=== PATIENT | male | born 1955 | race Caucasian/White ===

== ENCOUNTER 2024-05-03 01:28 | Day surgery (SDC) | payer MEDICARE, SELFPAY ==
[2024-04-24 15:56] VITALS: BMI 24.0
--- NOTE | 2024-04-24 16:12 | PC.NURSE ---
Report to the Outpatient Waiting Room, entrance under the green pavilion located off [facility], at time __8:30AM on date ___05/03/24____. Planned Procedure Time: __10:30AM . Time changes happen often and if your time is changed the preop area will call you the afternoon before. - You and your visitor will be asked to self-screen and do not enter if you have any COVID symptoms. - A mask is optional within the hospital at this time. Patients may have clear liquids (water, carbonated beverages, clear teas, apple juice) until 3 hours prior to surgery with a maximum of 20 ounces. - No food from midnight until time of surgery. Take the following medications with a SIP of water the morning of surgery: __DOXYCYCLINE DO NOT STOP ANY OF YOUR OTHER PRESCRIPTION MEDICATIONS PRIOR TO SURGERY ?EXCEPT THE FOLLOWING Medications to discontinue per physician __HOLD ALL VITAMINS/SUPPLEMENTS 7 DAYS PRE-OP PER DR WRIGHT, PER PATIENT Date to take last dose 04/25/24 Please no make-up, nail martiniquais, hairspray, perfume, deodorant, or body powder the day of surgery. No jewelry (including any body piercings) or valuables the day of surgery, leave them at home. Please take a shower or bath the night before, or the morning of, surgery with an antibacterial soap. Wear comfortable, loose fitting clothing. - Jewelry must be removed prior to entering the operating room. Rings and piercings that are not removed may be cut off. - The hospital will not accept responsibility for valuables. - Please leave all valuables, including medications, at home the day of surgery. If you are going home after surgery, a licensed winch driver must drive you home. - NO public transportation without another adult if you receive anesthesia. - We recommend that an adult stay with you for 24 hours following discharge. - We also recommend that you do not drive, make important decision, drink alcoholic beverages, or take any drugs that were not prescribed by your health care provider for at least 24 hours after your discharge time. Follow any additional instructions given to you from your surgeon. If you or anyone in your household have experienced Covid symptoms in the past week, please notify your surgeon or the nurse liaison at the phone number below for possible testing. Telephone instructions given to ___PATIENT and asked if any additional questions and then verbalized understanding. Patient advised to call surgeon office or pre surgery nurse liaison [phone] if any additional questions.
[2024-05-03] VITALS (8 sets, daily range): BP systolic 115–128; BP diastolic 68–87; PULSE 60–82; RESP 11–18; TEMP 36.1–36.3; O2SAT 96–100
[2024-05-03] MEDS: ACETAMINOPHEN 500 MG TABLET 1000 MG PO (09:00)
[2024-05-03] MEDS: LACTATED RINGERS 1,000 ML 30 ML IV CONT (09:00)
--- NOTE | 2024-05-03 10:59 | P.PNAN_ITS ---
Anes - Initial Pre Proc Eval Procedure: Operation Date: 05/03/24 10:30 Proposed Procedures p Right Hydrocelectomy, - Chepe Walker MD s Right Spermatocelectomy - Chepe Walker MD Date/Time: 05/03/24 10:59 Surgeon: Chepe Walker MD Pre Op Diagnosis: spermatocele, hydrocele Patient Data Age: 69 Gender: M Height: 1.88 m Weight: 85.2 kg Last Vital Signs Temp 96.9 F L 05/03/24 08:48 Pulse 69 05/03/24 08:48 Resp 18 05/03/24 08:48 BP 115/70 05/03/24 08:48 Pulse Ox 96 05/03/24 08:48 O2 Del Method Room Air 05/03/24 08:48 Allergies Allergy/AdvReac Type Severity Reaction Status Date / Time penicillin G Allergy Rash Verified 05/03/24 09:11 Home Medications Medication Instructions Recorded Confirmed Type cholecalciferol (vitamin D3) 50 50 mcg PO DAILY 04/24/24 05/03/24 History mcg (2,000 unit) capsule doxycycline hyclate 50 mg capsule 50 mg PO DAILY 04/24/24 05/03/24 History hydroxyzine HCl 10 mg tablet 10 mg PO HS 04/24/24 05/03/24 History metronidazole 1 % topical gel 1 applic topical HS 04/24/24 05/03/24 History phenyleph-shark liver 1 applic topical HS 04/24/24 05/03/24 History [id number] rectal cream Patient hx anesthesia problems: none Family hx anesthesia problems: none Results Review: All pre-operative results and documents have been reviewed as part of the pre- operative evaluation. PMF Social History Social History Smoking status: Never smoker Living arrangements: with family Additional living arrangements comments: Spiritual care concerns: No Anes - Eval Final PreProcedure Day of Procedure 05/03/24 10:59 Patient weight: normal Heart: regular rate and rhythm Lungs: clear to auscultation Airway: Mallampati scale class II Neurological: alert and oriented Last oral intake: >/= 8 hours ASA classification: II Emergent: no Anesthetic plan: proceed Anesthesia type and monitoring: general LMA and standard monitoring Results Review: All pre-operative results and documents have been reviewed as part of the pre- operative evaluation. Informed Consent: The patient's anesthetic plan and its attendant risks and benefits were discussed with the patient/family/POA. Questions were solicited and answers provided to the satisfaction of the patient/family/POA.
--- NOTE | 2024-05-03 11:17 | WPDHPUPDATE1 ---
History and Physical Update Update Date/Time: 05/03/24 11:17 History and Physical has been reviewed, including an updated exam of the patient. There are NO changes in the patient's condition. Risks, benefits, and alternatives have been discussed and questions answered. Patient agrees to proceed with procedure.
--- NOTE | 2024-05-03 11:25 | PM.IMHP ---
H&P: HPI History of Present Illness Date/Time: 05/03/24 11:25 Chief Complaint: Scrotal swelling PMFSH Past Medical History Medical History (Updated 05/03/24 @ 11:26 by Chepe Walker MD) Hydrocele Spermatocele Social History Social History Smoking status: Never smoker Living arrangements: with family Additional living arrangements comments: Spiritual care concerns: No Meds Home Medications and Allergies Home Medications Medication Instructions Recorded Confirmed Type cholecalciferol (vitamin D3) 50 50 mcg PO DAILY 04/24/24 05/03/24 History mcg (2,000 unit) capsule doxycycline hyclate 50 mg capsule 50 mg PO DAILY 04/24/24 05/03/24 History hydroxyzine HCl 10 mg tablet 10 mg PO HS 04/24/24 05/03/24 History metronidazole 1 % topical gel 1 applic topical HS 04/24/24 05/03/24 History phenyleph-shark liver 1 applic topical HS 04/24/24 05/03/24 History usi-etlfxa-gni rectal cream Allergies Allergy/AdvReac Type Severity Reaction Status Date / Time penicillin G Allergy Rash Verified 05/03/24 09:11 Vital Signs Vital Signs - 24 hr 05/03/24 08:48 Temperature 36.1 C L Pulse Rate 69 Respiratory Rate 18 Blood Pressure 115/70 Pulse Oximetry 96 Oxygen Delivery Room Air Exam Narrative: Patient is awake and alert. He is in no acute distress. Breathing is unlabored. The patient has a normal left testicle. Right testicle is palpable with adjacent large fluid collection Assessment and Plan Assessment and plan (1) Spermatocele: Code(s): N43.40 - Spermatocele of epididymis, unspecified Status: Acute (2) Hydrocele: Code(s): N43.3 - Hydrocele, unspecified Status: Acute Plan 69-year-old male with right scrotal swelling found to have spermatocele and hydrocele. -plan right spermatocelectomy, hydrocelectomy, possible orchiopexy -wrist, benefits, alternatives discussed and patient and his . They understand, had time for questions, agreed to proceed
[2024-05-03] MEDS: ceFAZolin 2 GM/D5W 50 ML 2 GM/50 ML BAG IVPB (12:04)
[2024-05-03] MEDS: BUPivacaine HCL 0.5% PF 30 ML VIAL INFILTRATE (12:27)
--- NOTE | 2024-05-03 13:10 | P.OP_ITS ---
Procedure Note - Detailed Date of Procedure 05/03/24 Pre-op Diagnosis spermatocele, hydrocele Post-op Diagnosis Same Procedure Performed Right spermatocelectomy, right hydrocelectomy, right orchiopexy Surgeon Chepe Walker MD Anesthesia General Findings Large right spermatocele, small right hydrocele Description of Procedure 417. Patient is preoperative IV antibiotics. He just anesthesia. He was prepped and draped in normal sterile fashion the supine position. The patient had a large spermatocele noted on physical examination. We made a midline scrotal raphe incision. We dissected down to the right hemiscrotum and is delivered the vaginalis to the right side. Tunica vaginalis was opened and approximately 50cc of hydrocele fluid was evacuated. We then rinse a healthy- appearing slightly small testicle, normal epididymis with large spermatocele. We carefully dissected the spermatocele with surrounding structures down to a narrow infundibulum to the epididymal head. A clamp was placed over this infundibulum and the spasms excised and then sent as specimen. We oversewed the infundibulum with 2-0 Vicryl suture. Then irrigated copiously there was good hemostasis. Careful inspected the testicle, epididymis, spermatic cord and there was no injury noted. Testicle was rather mobile therefore elected to orchiopexy. 3-0 Ethibond suture was placed medially laterally and inferiorly through the tunica albuginea of the testicle and through the dartos layer. The testicle then sat nicely it is in the orthotopic position. We irrigated copiously. We then closed the dartos layer with 2-0 Vicryl suture removal. We closed the deep dermal layer with 3-0 Vicryl suture skin was closed with running followed by interrupted 3-0 chromic suture. There was a good cosmetic result. A compressive dressing was placed patient. He was then taken to PACU in stable condition Drains No Pathology Yes Complications No immediate complications Condition Stable Disposition PACU
[2024-05-03 13:30] LABS: Glucose Point of Care 81 mg/dl (65-105)
--- NOTE | 2024-05-03 13:36 | SUR.PHASEI ---
Simple mask removed at 1330.
[2024-05-03] MEDS: oxyCODONE HCL (*CRX) 5 MG TAB IR PO (14:05)
== END 2024-05-03 14:39 | disposition home or self-care (01) ==
PROVIDERS: PCP Internal Medicine; Visit Provider Urology
PROC: (CPT 55040; principal; 2024-05-03 10:30)
PROC: (CPT 54840; 2024-05-03 10:30)
DX: N43.3 Hydrocele, unspecified (principal); N43.41 Spermatocele of epididymis, single; Z79.899 Other long term (current) drug therapy
CPT/HCPCS: 55040; 54640; 82948; 88304; A9270; J0690; J1100; J1596; J2405; J2704; J3010; J7120